=== PATIENT | female | born 2000 | race Caucasian/White ===

== ENCOUNTER 2021-06-24 16:08 | Emergency (ER) | payer MEDICAID ==
--- NOTE | 2021-06-24 16:24 | NUR ---
NO ANSWER IN LOBBY/OUTSIDE ER LOBBY.
--- NOTE | 2021-06-24 16:34 | NUR ---
CALLED PATIENT OUTSIDE ER LOBBY PARKING LOT; NO ANSWER.
--- NOTE | 2021-06-24 16:45 | NUR ---
PATIENT LEFT WITHOUT BEING SEEN BY DR. CONLEY. NO FURTHER CARE PROVIDED FOR PATIENT.
--- NOTE | 2021-06-24 16:45 | NUR ---
NO ANSWER AT THIS TIME
== END 2021-06-24 16:45 | disposition left against medical advice (07) ==
LOC: MED 16:08
DX: S49.91XA Unspecified injury of right shoulder and upper arm, initial encounter (principal); Z53.21 Procedure and treatment not carried out due to patient leaving prior to being seen by health care provider; X58.XXXA Exposure to other specified factors, initial encounter; Y93.89 Activity, other specified; Y92.89 Other specified places as the place of occurrence of the external cause; Y99.8 Other external cause status

== ENCOUNTER 2022-06-01 23:17 | Emergency (ER) | payer MEDICAID ==
[~2022-06-01] VITALS: Ht 172.7 cm; Wt 58.1 kg
[2022-06-01 23:25] VITALS: BP 142/82
--- NOTE | 2022-06-01 23:32 | NUR ---
Patient taken to bed 6.
--- NOTE | 2022-06-02 00:55 | NUR ---
Note elsi in ED - 06/02/22 at 0119 by [id number] Patient resting in bed, A/Ox4, chest rise and fall symmetrical, no c/o pain or s/s of distress, on monitor.
--- NOTE | 2022-06-02 00:55 | NUR ---
Patient resting in bed, A/Ox4, chest rise and fall symmetrical, no c/o pain or s/s of distress, on monitor.
--- NOTE | 2022-06-02 01:09 | NUR ---
Dr. Alvarez examining patient.
--- NOTE | 2022-06-02 01:17 | NUR ---
X-Ray at bedside.
--- NOTE | 2022-06-02 01:19 | NUR ---
Patient resting in bed, A/Ox4, chest rise and fall symmetrical, no c/o pain or s/s of distress, on monitor.
[2022-06-02] MEDS ORDERED: PRED20TA5 PO (01:42)
[2022-06-02 01:54] VITALS: BP 114/78
== END 2022-06-02 01:54 | disposition home or self-care (01) ==
LOC: MED 23:17
DX: J45.909 Unspecified asthma, uncomplicated (principal)
CPT/HCPCS: 71045; 99283; Q0092